=== PATIENT | male | born 1960 | race Caucasian/White ===

== ENCOUNTER 2023-10-25 16:38 | Emergency (ER) | payer OTHER ==
[~2023-10-25] VITALS: Ht 177.8 cm; Wt 106.6 kg
[2023-10-25 16:40] VITALS: BP 125/71; PULSE 60; RESP 20; TEMP 98.2; O2SAT 96
[2023-10-25] MEDS: KETOROLAC 30 MG/ML VIAL IM ONE (17:42)
[2023-10-25] MEDS: MORPHINE SULFATE 10 MG/ML VIAL IM ONE (17:43)
[2023-10-25] MEDS ORDERED: LID5T TP (18:08)
[2023-10-25] MEDS ORDERED: ACET-8905 PO (18:08)
[2023-10-25 18:52] VITALS: BP 125/60; PULSE 70; RESP 16; TEMP 98; O2SAT 99
== END 2023-10-25 18:50 | disposition home or self-care (01) ==
LOC: MED 16:38
DX: S39.012A Strain of muscle, fascia and tendon of lower back, initial encounter (principal); M25.552 Pain in left hip; M79.661 Pain in right lower leg; M79.662 Pain in left lower leg; I10 Essential (primary) hypertension; F90.9 Attention-deficit hyperactivity disorder, unspecified type; F31.9 Bipolar disorder, unspecified; Z86.69 Personal history of other diseases of the nervous system and sense organs; Z79.899 Other long term (current) drug therapy; W18.39XA Other fall on same level, initial encounter; Y92.89 Other specified places as the place of occurrence of the external cause; Y93.89 Activity, other specified; Y99.8 Other external cause status
CPT/HCPCS: 96372; 99284; J1885; J2270

== ENCOUNTER 2024-01-23 22:21 | Emergency (ER) | payer OTHER ==
[~2024-01-23] VITALS: Ht 180.3 cm; Wt 108.9 kg
[2024-01-23 22:21] VITALS: BP 157/74; PULSE 84; RESP 16; TEMP 98; O2SAT 97
[~2024-01-23 22:21] MED LIST: ACET-8905 PO; LID5T TP
[2024-01-23] MEDS ORDERED: cefTRIAXone 1,000 MG VIAL ONE (22:48)
[2024-01-23] MEDS ORDERED: LIDOCAINE MPF 1% 5 ML ONE (22:49)
[2024-01-23] MEDS: cefTRIAXone 1,000 MG in LIDOCAINE MPF 1% 2.1 ML IM ONE (22:57)
[2024-01-23] MEDS: KETOROLAC 60 MG/2 ML VIAL IM ONE (22:58)
[2024-01-23 23:00] VITALS: O2SAT 95
[2024-01-23 23:40] LABS: APPEARANCE,URINE CLEAR (CLEAR); BILIRUBIN,URINE 1+ (NEGATIVE); BLOOD, URINE 3+ (NEGATIVE); COLOR,URINE YELLOW (YELLOW); LEUKOCYTE ESTERASE ,URINE NEGATIVE (NEGATIVE); NITRITE, URINE NEGATIVE (NEGATIVE); PROTEIN,URINE NEGATIVE (NEGATIVE); UGLUCOSE NEGATIVE (NEGATIVE); UROBILINOGEN,URINE 0.2 EU/dL (0.2 - 1)
[2024-01-23 23:59] LABS: BACTERIA,URINE OCCASSIONAL /HPF (None Seen); RBC,URINE >100 /HPF (0-5); SQUAMOUS EPITHELIAL CELL,UR 0-3 (FEW) /LPF (0-3 (FEW)); WBC,URINE 0-5 /HPF (0-5)
[2024-01-24 00:11] LABS: ICTOTEST NEGATIVE (NEGATIVE)
[2024-01-24] MEDS: cefTRIAXone 1,000 MG in LIDOCAINE MPF 1% 2.1 ML IM ONE (00:40)
[2024-01-24] MEDS ORDERED: CIPR500T4 PO (00:57)
[2024-01-24 01:24] VITALS: BP 150/91; PULSE 94; RESP 15; TEMP 98.3; O2SAT 98
== END 2024-01-24 01:24 | disposition home or self-care (01) ==
LOC: MED 22:21
DX: N39.0 Urinary tract infection, site not specified (principal); I10 Essential (primary) hypertension; Z79.899 Other long term (current) drug therapy
CPT/HCPCS: 51702; 81001; 96372; 99284; J0696; J1885; J2001